=== PATIENT | male | born 1965 | race Caucasian/White ===

== ENCOUNTER 2019-05-14 12:16 | Emergency (ER) | payer SELFPAY ==
--- NOTE | 2019-05-14 15:23 | ER Document Report ---
ED Extremity Problem, Lower - General Chief Complaint: Leg Pain Stated Complaint: RIGHT SIDE WEAKNESS Time Seen by Provider: 05/14/19 14:35 Information source: Patient Notes: Patient is a 54-year-old male who presents today with the onset today of some pain in his posterior right calf as well as some numbness to his right leg and right buttocks cheek. Patient has a history of a stroke in 2010 as well as an arterial clot in his left leg requiring stenting 2 years ago in [place]. Reviewing the patient's history it appears the patient never has had a DVT. Patient denies any weakness in the arms or the legs. No upper extremity symptoms. No headache, neck pain, chest pain, or palpitations. No recent trauma. Patient states he has some chronic midline lower back pain. History of a lumbar fusion. He denies any abdominal pain, dysuria, and denies any discoloration of the leg. He denies any recent trips or travel. TRAVEL OUTSIDE OF THE [place] IN LAST 30 DAYS: No - Related Data Allergies/Adverse Reactions: morphine Allergy (Verified 05/14/19 13:27) oxycodone [From OxyContin] Allergy (Verified 05/14/19 13:27) Past Medical History - Social History Smoking Status: Current Every Day Smoker Chew tobacco use (# tins/day): No Frequency of alcohol use: Occasional Drug Abuse: None Family History: Reviewed & Not Pertinent Patient has suicidal ideation: No Patient has homicidal ideation: No Neurological Medical History: Reports: Hx Seizures Endocrine Medical History: Reports: Hx Diabetes Mellitus Type 2 Renal/ Medical History: Denies: Hx Peritoneal Dialysis Past Surgical History: Reports: Hx Vascular Surgery - LLE stent placement Review of Systems - Review of Systems Constitutional: denies: Fever EENT: denies: Eye discharge, Ear pain, Ear discharge, Nose discharge Cardiovascular: denies: Chest pain, Palpitations Respiratory: denies: Short of breath Gastrointestinal: denies: Vomiting Genitourinary: denies: Dysuria Skin: denies: Rash Neurological/Psychological: Other - no slurred speech -: Yes All other systems reviewed and negative Physical Exam - Vital signs Vitals: Temp Resp BP Pulse Ox 98.4 F 18 144/83 H 98 05/14/19 12:25 05/14/19 12:25 05/14/19 12:25 05/14/19 12:25 Notes: CONSTITUTIONAL: Alert and oriented and responds appropriately to questions. Well-appearing; well-nourished HEAD: Normocephalic; atraumatic CARD: Regular rate and rhythm; no murmurs; symmetric distal pulses RESP: Normal chest excursion without splinting or tachypnea; breath sounds clear and equal bilaterally; no wheezes, no rhonchi, no rales ABD/GI: Normal bowel sounds; non-distended; soft, non-tender; no palpable organomegaly or masses BACK: The back appears normal and is non-tender to palpation EXT: Normal ROM in all joints; minimal right posterior calf tenderness with no swelling or erythema noted. I am not able to palpate the dorsalis pedis or posterior tibialis pulse to the right foot. Very minimal extended capillary refill of around 3 seconds. Normal sensation. Normal proprioception. I am able to palpate the dorsalis pedis pulse of the left foot SKIN: No acute lesions noted NEURO: CN 2-12 intact; 5/5 bilateral upper and lower extremity strength with sensation intact to light touch PSYCH: The patient's mood and manner are appropriate. Grooming and personal hygiene are appropriate. Course - Re-evaluation Re-evalutation: Given the history and physical examination, we will order ankle-brachial indexes, dopplar for pulses, perform a stat arterial bedside Doppler, and reassess. I spoken to the tech who will be down momentarily. Patient has capillary refill around 3 seconds. 05/14/19 15:31 The blood pressure in the right upper extremity is 136/78. Blood pressure on the right lower extremity is 72/57. Left upper extremity blood pressure is 140/80. Left lower extremity blood pressure is 100/72. The right-sided ankle- brachial index is around 0.5. Patient is currently having the arterial Doppler performed. No change in exam or pain level. Anticipate transfer. I have added a coagulation profile we will proactively start the patient on a heparin bolus and drip. 05/14/19 15:56 Arterial Doppler shows a monophasic waveform from the knee downward. I have called the transfer center at [facility]. 05/14/19 16:12 I spoke to the vascular surgeon at [facility], Dr. Dinh. He agrees with my disposition and plan. He will have the patient transported directly to the emergency department at that location. Heparin has been started. - Vital Signs Vital signs: Temp Pulse Resp BP Pulse Ox 98.4 F 16 118/80 96 05/14/19 12:25 05/14/19 14:01 05/14/19 14:01 05/14/19 14:01 - Laboratory Laboratory results interpreted by me: 05/14/19 12:29 POC Glucose 157 H Critical Care Note - Critical Care Note Total time excluding time spent on procedures (mins): 40 Discharge - Discharge Clinical Impression: Arterial occlusion Condition: Serious [facility]position: [facility]
[2019-05-14] MEDS ORDERED: HEPARIN SODIUM,PORCINE/D5W 25,000 UNIT/250 ML RTUINJ IV PRN (15:32)
[2019-05-14] MEDS ORDERED: HEPARIN SOD (PORCINE) 1,000 UNIT/ML 10 ML VIAL IV ONE (15:32)
[2019-05-14 15:43] LABS: PROTHROMBIN TIME 13.2 SEC (11.4-15.4)
[2019-05-14 15:44] LABS: PARTIAL THROMBOPLASTIN TIME 32.7 SEC (23.5-35.8)
--- NOTE | 2019-05-14 16:35 | XCELERA REPORT ---
[address] [address] Lower Extremity Arterial Evaluation Name: SRIRAM TARIQ Age: 54 yrs Gender: Male : 1965 Patient Status: Emergency Patient Location: ER Study Date: 05/14/2019 03:23 PM Procedure: A color flow and duplex scan of the lower extremity arteries was performed on the right with velocity and waveform anaylsis. Reason For Study: 8; RLExt Ordering Physician: VERO REEDER Performed By: Teresa Morales Measurements and Calculations Right Left TELEVISION SERVICE ENGINEER PSV 101.3 cm/sec Prox PFA PSV 54.6 cm/sec Prox SFA PSV 25.1 cm/sec Mid SFA PSV -36.1 cm/sec Dist SFA PSV -32.7 cm/sec Dist Pop A PSV -19.4 cm/sec Mid NIKKO PSV 10.8 cm/sec Mid METAL FABRICATING SUPERVISOR PSV 19.1 cm/sec Evens Pedis PSV 16.9 -21.2 cm/sec Right Side Arterial Evaluation Normal velocity and spectral broadening monophasic waveforms noted in the Common Femoral artery.. Monophasic with low velocity and spectral broadening from the Femoral to infrageniculate vessels. Ankle Brachial index not obtained. Left Side Arterial Evaluation Spot evaluation of the Dorsalis Pedis shows monophasic waveform, spectral broadening, low velocity. Critical Findings Discussed with Dr Juvencio (O) at about 1630 hours. Interpretation Summary Severe hemodynamically significant lesions in the right lower extremity only, on duplex imaging, at rest. Spot check on left suggests severe disease. : VERO REEDER > Biju Perrin
[2019-05-14 18:09] VITALS: BP 152/73
[2019-05-14] MEDS ORDERED: HEPARIN SOD (PORCINE) 1,000 UNIT/ML 10 ML VIAL IV PRN (18:33)
--- NOTE | 2019-05-14 20:01 | EKG REPORT ---
SEVERITY:- ABNORMAL ECG - SINUS RHYTHM ST DEPRESSION, CONSIDER ISCHEMIA, INF LEADS : Confirmed by: Alexandra Kincaid MD 14-May-2019 20:00:38
== END 2019-05-14 18:09 | disposition short-term general hospital (02) ==
LOC: ER 12:16
DX: I70.90 Unspecified atherosclerosis (principal); M79.661 Pain in right lower leg; R20.0 Anesthesia of skin; M54.5 Low back pain; G89.29 Other chronic pain; Z98.1 Arthrodesis status; F17.200 Nicotine dependence, unspecified, uncomplicated; E11.9 Type 2 diabetes mellitus without complications; Z86.73 Personal history of transient ischemic attack (TIA), and cerebral infarction without residual deficits; Z88.5 Allergy status to narcotic agent
CPT/HCPCS: 93005; 99285; 96374; 36415; 82962; 85610; 85730; 93926 ×2; 93010; J1644 ×2

== ENCOUNTER → 2019-07-28 | Outpatient (CLI) | payer SELFPAY ==
--- NOTE | 2019-07-29 08:55 | XCELERA REPORT ---
[address] [address] Lower Extremity Arterial Evaluation Name: SRIRAM TARIQ Age: 54 yrs Gender: Male : 1965 Patient Status: Outpatient Patient Location: SP Study Date: 07/28/2019 04:31 PM Procedure: A color flow and duplex scan of the lower extremity arteries was performed bilaterally with velocity and waveform anaylsis. Reason For Study: DECREASED PULSES Ordering Physician: THO HANKS Performed By: Ashlyn Nguyen Measurements and Calculations Right Left FRAME BUILDER PSV 31.8 36.7 cm/sec Prox PFA PSV -22.9 -727.8cm/sec Prox SFA PSV 15.9 479.7 cm/sec Mid SFA PSV -19.3 -46.3 cm/sec Dist SFA PSV -6.7 -51.1 cm/sec Prox Pop A PSV 8.8 18.8 cm/sec Dist NIKKO PSV 6.3 9.8 cm/sec Dist PASTRY COOK PSV -7.0 15.0 cm/sec Evens Pedis PSV 9.0 14.7 cm/sec Right Side Arterial Evaluation Low velocity and Monophasic waveforms noted from the Common Femoral artery to the infrageniculate vessels . Gradual diminution so that just trickle flow is seen at the ankle. Ankle Brachial index not obtained . Left Side Arterial Evaluation Low velocity and Monophasic waveforms noted from the Common Femoral artery to the infrageniculate vessels . Gradual diminution so that just trickle flow is seen at the ankle. Ankle Brachial index not obtained . Critical Findings Findings discussed with Dr Hanks at about 1750 hours. The patient had been advised to go to the Emergency room by nelson flynn, indicating that he would find his own way to [place], where he has had interventions in about May . Interpretation Summary Severe hemodynamically significant lesions in the bilateral lower extremities, on duplex imaging, at rest. Truly terrible arterial flow, with severe inflow disease, possibly sequential. Compatible with limb threatening ischemia. : THO HANKS > Biju Perrin
== END ==
LOC: SP 15:43
PROVIDERS: ATTEND Internal Medicine
DX: I73.9 Peripheral vascular disease, unspecified (principal); R09.89 Other specified symptoms and signs involving the circulatory and respiratory systems
CPT/HCPCS: 93925

== ENCOUNTER → 2019-12-16 | Outpatient (CLI) | payer BC ==
--- NOTE | 2019-12-16 12:48 | RADIOLOGY REPORT (SQ) ---
EXAM DESCRIPTION: CHEST PA/LATERAL COMPLETED DATE/TIME: 12/16/2019 10:33 am REASON FOR STUDY: NICOTINE DEPENDENCE, CIGARETTES, UNCOMPLICATED COMPARISON: None. EXAM PARAMETERS: NUMBER OF VIEWS: two views TECHNIQUE: Digital Frontal and Lateral radiographic views of the chest acquired. RADIATION DOSE: NA LIMITATIONS: none FINDINGS: LUNGS AND PLEURA: No opacities, masses or pneumothorax. No pleural effusion. MEDIASTINUM AND HILAR STRUCTURES: No masses or contour abnormalities. HEART AND VASCULAR STRUCTURES: Heart normal size. No evidence for failure. BONES: No acute findings. HARDWARE: None in the chest. OTHER: No other significant finding. IMPRESSION: NO SIGNIFICANT RADIOGRAPHIC FINDING IN THE CHEST. TECHNICAL DOCUMENTATION: JOB ID: [id number] 2010 [employer]- All Rights Reserved Reading location - IP/workstation name: [email or web address]
--- NOTE | 2019-12-16 12:55 | EKG REPORT ---
SEVERITY:- ABNORMAL ECG - SINUS RHYTHM BORDERLINE LEFT AXIS DEVIATION CONSIDER OD INFERIOR FL : Confirmed by: Jonny Fisher MD 16-Dec-2019 12:54:30
== END ==
LOC: OD 10:10
PROVIDERS: ATTEND Nurse Practitioner Family
DX: R03.0 Elevated blood-pressure reading, without diagnosis of hypertension (principal); F17.210 Nicotine dependence, cigarettes, uncomplicated
CPT/HCPCS: 71046; 93005; 93010

== ENCOUNTER 2019-12-18 09:15 | Day surgery (SDC) | payer BC ==
[~2019-12-18 09:15] MED LIST: LIDOCAINE 2% INJ-PF (20 MG/ML) 10 ML AMPUL ONE; PROPOFOL INJ 200 MG/20 ML VIAL IV ONE
[2019-12-18] MEDS ORDERED: PROPOFOL INJ 200 MG/20 ML VIAL IV ONE (11:32)
--- NOTE | 2019-12-18 12:15 | Operative Report ---
Operative Report DATE OF SURGERY: 12/18/19 Operative Report: Risk benefits alternatives of the procedure discussed with the patient in detail and informed consent is obtained Timeout was called Propofol sedation provided rectal exam is performed. No masses, tears or fissures. Scope was then inserted into the patient's rectum. Colonoscopy performed to the cecum. Cecum is identified. Prep was good. Various segments of the colon evaluated EGD is also performed following the procedure. PREOPERATIVE DIAGNOSIS: Change in bowel habits. Dysphagia POSTOPERATIVE DIAGNOSIS: Right side colon biopsy status post biopsy. Ascending colon polyp removed via snare polypectomy but not able to be retrieved due to redundancy of colon. Hepatic flexure polyp removed with snare polypectomy and retrieved. Transverse colon polyp removed via snare polypectomy and retrieved. Internal hemorrhoids. Gastritis status post biopsy. Esophagitis versus Ordaz's status post biopsy OPERATION: Colonoscopy with snare polypectomy. Colonoscopy with biopsy. EGD with biopsy SURGEON: FAISAL HERMOSILLO ANESTHESIA: LMAC TISSUE REMOVED OR ALTERED: As noted above. COMPLICATIONS: None. ESTIMATED BLOOD LOSS: None. INTRAOPERATIVE FINDINGS: As noted above. PROCEDURE: Patient tolerated the procedure well. No immediate postprocedure complications are noted. Patient is discharged in good condition. Discharge date 12/18/2019. Discharge diet: Regular. Discharge activity: Regular. 2 to 3-week follow-up to discuss findings. Patient is instructed call the office or proceed to the emergency room should there be any further problems or questions. Wait on the pathology. 3-year surveillance colonoscopy.
[2019-12-18 12:19] VITALS: BP 112/69
== END 2019-12-18 12:19 | disposition home or self-care (01) ==
LOC: END 09:15
PROVIDERS: ATTEND Internal Medicine Gastroenterology
DX: D12.2 Benign neoplasm of ascending colon (principal); D12.6 Benign neoplasm of colon, unspecified; K64.8 Other hemorrhoids; K29.50 Unspecified chronic gastritis without bleeding; K20.9 Esophagitis, unspecified; F17.210 Nicotine dependence, cigarettes, uncomplicated; E11.9 Type 2 diabetes mellitus without complications; Z86.73 Personal history of transient ischemic attack (TIA), and cerebral infarction without residual deficits; I73.9 Peripheral vascular disease, unspecified; Z79.02 Long term (current) use of antithrombotics/antiplatelets; Z79.82 Long term (current) use of aspirin; Z79.51 Long term (current) use of inhaled steroids; Z88.5 Allergy status to narcotic agent
CPT/HCPCS: 43239; 45380; 45385; 82962; 88342 ×2; 88305 ×2; 00813; J2704; J3490; 813